=== PATIENT | female | born 1960 | race Asian ===

== ENCOUNTER 2017-09-27 07:33 | Day surgery (SDC) | payer OTHER ==
[2017-09-27] MEDS ORDERED: FENTAnyl 50 MCG/ML VIAL (09:41)
[2017-09-27] MEDS ORDERED: MIDAZOLAM 1 MG/ML 2 ML INJ (09:41)
== END 2017-09-27 11:15 | disposition home or self-care (01) ==
LOC: GIL 07:33
DX: R19.4 Change in bowel habit (principal); K64.8 Other hemorrhoids; Z85.048 Personal history of other malignant neoplasm of rectum, rectosigmoid junction, and anus
CPT/HCPCS: 45378